=== PATIENT | female | born 2000 | race Two or more races ===

== ENCOUNTER 2018-05-02 09:42 | Emergency (ER) | payer SELFPAY ==
[~2018-05-02] VITALS: Ht 149.9 cm; Wt 46.3 kg
[2018-05-02] MEDS ORDERED: ORTHO TRI-CYCL1 EACH PO (09:59)
--- NOTE | 2018-05-02 11:08 | Emergency Room Report ---
History of Present Illness General Chief Complaint: Skin Rash/Abscess Source: Patient Present Illness HPI Patient states she was bit by a spider about 3 days ago. She has 2 bites on her left calf and one bite on her small right pinky toe. She states that she had been using topical Benadryl. She states the area have become less swollen. However they continue to be itchy. She thinks that she did see the actual spider. She was unable to capture. She has no other lesions or bites. She has no other complaints. Allergies: Coded Allergies: No Known Allergies (Unverified , 05/02/18) Patient History Past Medical History: none Past Surgical History: none Social History: Denies: smoking, alcohol use, drug use Last Menstrual Period: 3 weeks ago Reviewed Nursing Documentation: PMH: Agreed; PSxH: Agreed Nursing Documentation-PMH Past Medical History: No Stated History Review of Systems All Other Systems: negative except mentioned in HPI Physical Exam Vital Signs Date Time Temp Pulse Resp B/P (MAP) Pulse Ox O2 Delivery O2 Flow Rate FiO2 05/02/18 09:55 98.7 77 16 112/69 99 Room Air 98.8 Sp02 EP Interpretation: reviewed, normal General Appearance: no apparent distress, alert, GCS 15, non-toxic Head: normocephalic, atraumatic Eyes: bilateral eye normal inspection, bilateral eye PERRL ENT: hearing grossly normal, normal pharynx, no angioedema, normal voice Neck: full range of motion, supple/symm/no masses Respiratory: no respiratory distress, no retraction, no accessory muscle use, speaking full sentences Cardiovascular #1: regular rate, rhythm, no edema Rectal: deferred Musculoskeletal: back normal, gait/station normal, normal range of motion, non- tender Neurologic: alert, oriented x3, responsive, motor strength/tone normal, sensory intact, speech normal Psychiatric: judgement/insight normal, memory normal, mood/affect normal, no suicidal/homicidal ideation Skin: warm/dry, well hydrated, other - Two 3 cmx3cm areas of erythema, warmth and ecchymosis on the L. calf. 1cm area of similar morphology on the R. pinky toe. Lymphatic: no adenopathy Medical Decision Making Diagnostic Impression: Primary Impression: Insect bites ER Course This patient appears to have a local reaction to an insect bite. Possibly spider bite. They are not concerning or necrotic. They do not appear infected. I will give the patient topical hydrocortisone to use for symptomatic relief. At this time, I did not identify an emergency medical condition. The patient's given return precautions and follow-up instructions. Last Vital Signs Date Time Temp Pulse Resp B/P (MAP) Pulse Ox O2 Delivery O2 Flow Rate FiO2 05/02/18 09:55 98.7 77 16 112/69 99 Room Air 98.8 Status: improved Disposition: HOME, SELF-CARE Condition: Improved Referrals: NOT CHOSEN IPA/,REFERRING (PCP) Soila Ledesma DO May 02, 2018 11:08
[2018-05-02] MEDS ORDERED: HYDROCORTISONE30 G2 TP (11:10)
[2018-05-02 11:15] VITALS: BP_SYST 101; BP_SYST 109; BP_DIAS 69; BP_DIAS 75
[2018-05-02 11:18] VITALS: BP 101/69
== END 2018-05-02 11:18 | disposition home or self-care (01) ==
LOC: EMR 10:44
DX: S80.862A Insect bite (nonvenomous), left lower leg, initial encounter (principal); W57.XXXA Bitten or stung by nonvenomous insect and other nonvenomous arthropods, initial encounter; Y93.9 Activity, unspecified; Y92.9 Unspecified place or not applicable
CPT/HCPCS: 99282